=== PATIENT | female | born 1950 | race Caucasian/White ===

== ENCOUNTER → 2019-09-24 | Outpatient (CLI) | payer MEDICARE ==
--- NOTE | 2019-09-24 12:52 | PCVCIMAG ---
EXAM: BILATERAL LOWER EXTREMITY ARTERIAL DUPLEX INDICATION: Peripheral Arterial Disease. Leg pain. FINDINGS: Right Leg: Satisfactory arterial waveforms throughout the common/profunda/superficial femoral, popliteal, anterior tibial, peroneal, and posterior tibial arteries. No flow limiting stenosis seen. Left Leg: Satisfactory arterial waveforms throughout the common/profunda/superficial femoral, popliteal, anterior tibial, peroneal, and posterior tibial arteries. No flow limiting stenosis seen. IMPRESSION: No flow limiting stenosis in the right lower extremity. No flow limiting stenosis in the left lower extremity. LOC:[id number]
== END | disposition home or self-care (01) ==
LOC: PCVCIMAG 10:38
PROVIDERS: ATTEND Family Medicine
DX: I73.9 Peripheral vascular disease, unspecified (principal)
CPT/HCPCS: 93925

== ENCOUNTER → 2019-11-11 | Outpatient (CLI) | payer MEDICARE | END | disposition home or self-care (01) | LOC: PCVCCLINIC 11:00 | PROVIDERS: ATTEND Internal Medicine Cardiovascular Disease | DX: R06.02 Shortness of breath (principal); R60.0 Localized edema; I10 Essential (primary) hypertension; E78.00 Pure hypercholesterolemia, unspecified; R60.9 Edema, unspecified; R09.89 Other specified symptoms and signs involving the circulatory and respiratory systems; K21.9 Gastro-esophageal reflux disease without esophagitis; E78.5 Hyperlipidemia, unspecified; Z86.73 Personal history of transient ischemic attack (TIA), and cerebral infarction without residual deficits; Z90.49 Acquired absence of other specified parts of digestive tract; Z79.82 Long term (current) use of aspirin; Z79.899 Other long term (current) drug therapy | CPT/HCPCS: 36415; 80061; G0463 ==